=== PATIENT | female | born 2000 ===

== ENCOUNTER 2021-10-18 10:02 | Outpatient (CLI) | payer OTHER | END 2021-10-18 12:14 | disposition home or self-care (01) | LOC: PRENATAL 10:02 | PROVIDERS: ATTEND Obstetrics & Gynecology Maternal & Fetal Medicine | DX: O35.0XX0 Maternal care for (suspected) central nervous system malformation in fetus, not applicable or unspecified (principal); O35.3XX0 Maternal care for (suspected) damage to fetus from viral disease in mother, not applicable or unspecified; O41.00X0 Oligohydramnios, unspecified trimester, not applicable or unspecified; Z3A.20 20 weeks gestation of pregnancy ==